=== PATIENT | male | born 1985 | race Caucasian/White ===

== ENCOUNTER 2016-10-28 23:08 | Emergency (ER) | payer SELFPAY ==
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
--- NOTE | 2016-10-31 13:04 | NUR ---
Received [facility]AD person referral. Attempted to contact pt. No answer, voice mail message left.
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
== END 2016-10-29 00:25 | disposition home or self-care (01) ==
LOC: ER 23:08
PROC: 0HQEXZZ Repair Left Lower Arm Skin, External Approach (ICD-10-PCS; principal; 2016-10-28)
DX: S61.512A Laceration without foreign body of left wrist, initial encounter (principal); S00.03XA Contusion of scalp, initial encounter; F10.129 Alcohol abuse with intoxication, unspecified; Y04.0XXA Assault by unarmed brawl or fight, initial encounter